=== PATIENT | male | born 2000 | race Caucasian/White ===

== ENCOUNTER 2024-10-18 21:18 | Emergency (ER) | payer MEDICAID, SELFPAY ==
[2024-10-18 21:19] VITALS: BP 157/88; PULSE 78; RESP 18; TEMP 36.4; O2SAT 99
[2024-10-18 21:21] VITALS: BMI 43.0
--- NOTE | 2024-10-18 21:32 | EDS_ITS ---
HPI <Dr. Jaxon Jameson DO - Last Filed: 10/18/24 21:35> History of Present Illness Chief Complaint: Upper Extremity Injury <TED Cheung - Last Filed: 10/18/24 21:39> Narrative Narrative: 23-year-old [id number] male presents with 2 weeks of pain in his left forearm and wrist. Occasionally the pain goes into his 3rd and 4th digits. No trauma. 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 There is no swelling or skin changes. No fever or chills. He takes Celebrex and gabapentin for back issues but it is not been helping so he added Tylenol with minimal pain relief. PFSH <Dr. Jaxon Jameson, - Last Filed: 10/18/24 21:35> [facility] Home Medications ?Medication ?Instructions ?Recorded ?Last Taken ?Type celecoxib 200 mg capsule 1 PO BID 10/18/24 Unknown Hi story gabapentin 100 mg capsule 100 mg PO TID 10/18/24 Unkno wn History tramadol 50 mg tablet 50 mg PO Q6H PRN PRN wrist p ain 3 10/18/24 Unknown Rx days #12 tabs Allergy/AdvReac Type Severity Reaction Status Date / Time No Known Allergies Allergy Verified 10/18/24 21:19 Family History no significant family his Social History Smoking Status: Never smoker ROS <TED Cheung - Last Filed: 10/18/24 21:39> ROS ED ROS Narrative Constitutional: Negative for fever, chills, malaise. Neuro: Negative for motor/sensory dysfunction. Skin: Negative for rash, abscess, or wound. Musc: Positive for left upper extremity pain. No swelling or trauma. EXAM <Dr. Jaxon Jameson DO - Last Filed: 10/18/24 21:35> Physical Exam Const Vital Signs: 10/18/24 21:19 Temperature 97.6 F L Temperature Source Temporal Pulse Rate 78 Respiratory Rate 18 Blood Pressure 157/88 H Blood Pressure Mean 111 Pulse Ox 99 Oxygen Delivery Method Room Air <TED Cheung - Last Filed: 10/18/24 21:39> Physical Exam Narrative Exam Narrative: CONST: Patient sitting in no acute distress. EYES: Normal inspection. SKIN: Color normal, no rash, warm, dry, intact. EXTREMITIES: Left upper extremity appears normal. There is no edema, erythema, or skin abnormalities. He has full range of motion of all joints. 5/5 strength in shoulder abduction, elbow and wrist flexion extension, and core fitter strength. Normal motor and sensory function in median radial and ulnar distributions. M ild tenderness over the dorsal wrist. No scaphoid tenderness. 2+ radial pulses and brisk cap refill. NEURO: Alert and answering questions appropriately. PSYCH: Normal affect. [facility] <Dr. Jaxon Jameson DO - Last Filed: 10/18/24 21:35> [facility] Treatment and Re-Evaluation Narrative: I have personally performed a face to face assessment of the patient and have reviewed the ROSEANN Note. I performed a substantive portion of the visit including all aspects of the following. My nogueira findings include: History: Patient presents with pain in his left wrist and forearm that has been getting worse over the past 2 weeks. Patient denies any trauma or injury. Patient states the pain is worse with certain movements. Patient describes his pain as sharp and aching. Patient states nothing seems to help with the pain. Patient is currently on Celebrex and gabapentin. Patient is right-hand dominant. Exam: Vital signs are stable. Patient is afebrile. Patient is in no acute distress. Musculoskeletal exam reveals tenderness over the dorsal aspect of the left wrist. There is no edema or ecchymosis. There is no deformity noted. Range of motion was slightly limited in extension of the left wrist secondary to pain. There is no pain with resistive extension of the wrist. There is no erythema or warmth. There is no tenderness over the lateral epicondyle of the elbow or myotendinous junction at the proximal forearm. Medical Decision Making: Patient was advised that this is most likely a tendon strain. Patient was instructed to ice and elevate the left forearm. Patient w as given a Velcro wrist splint. Patient was given an injection of Toradol here. Patient was given a dose of Ultram here. Patient was given a prescription for short course of Ultram. Patient was instructed to follow-up with his primary care physician in 5 to 7 days. Patient was instructed to return if worse in any way. Patient understood and was agreeable with the plan. All questions were an swered. <TED Cheung - Last Filed: 10/18/24 21:39> [facility] Narrative Medical decision making narrative: Differential includes but not limited to tendinitis, less likely fracture, no signs of infection such as gout or septic joint are present. Tests considered: I considered an x-ray but he has no trauma or abnormalities on exam so it is not indicated. Discharge Plan Triage Chief Complaint: Upper Extremity Injury ED Midlevel Provider: Yanira Nelson ED Provider: Jaxon Jameson Dx/Rx/DC Orders Clinical Impression: Acute pain of left wrist Instructions: Self-Care for Strains and Sprains Prescriptions: New tramadol 50 mg tablet 50 mg PO Q6H PRN PRN (Reason: wrist pain) 3 Days Qty: 12 0RF No Action celecoxib 200 mg capsule 1 PO BID gabapentin 100 mg capsule 100 mg PO TID Referrals: Juan Aguilar MD [Med Staff - Active Staff] - Activity Restrictions/Additional Instructions: Wear the wrist splint and try to rest your wrist is much as possible. Omar home you can take it off and ice the area in 20-minute sessions. Continue home Celebrex and you can take Tylenol 1000 mg every 6 hours. I prescribed tramadol for breakthrough pain. Note this medication can cause constipation so I recommend a stool softener while using it. Follow-up with orthopedics if needed. Print Language: Turkmen Disposition Disposition: Home, Self Care
[2024-10-18] MEDS: traMADol 50 MG Tablet PO (21:39)
[2024-10-18] MEDS: Ketorolac 30 MG/ML Syringe IM (21:39)
[2024-10-18 21:45] VITALS: BP 153/89; PULSE 75; RESP 18; TEMP 36.4; O2SAT 98
== END 2024-10-18 21:59 | disposition home or self-care (01) ==
LOC: ED 21:41
PROVIDERS: Emergency Provider Emergency Medicine; PCP Family Medicine; Visit Provider Emergency Medicine
DX: M25.532 Pain in left wrist (principal)
CPT/HCPCS: 96372; 99284